=== PATIENT | male | born 1960 | race Caucasian/White ===

== ENCOUNTER 2021-09-18 07:02 | Day surgery (SDC) | payer SELFPAY ==
[2021-09-17 14:25] LABS: Potassium 4.6 mmol/L (3.5-5.1)
[2021-09-18] MEDS ORDERED: CEFAZOLIN SODIUM 1 GM/VIAL ONE (07:14)
[2021-09-18] MEDS ORDERED: Ringers Lactate 1,000 ML IV ONE (07:14)
[2021-09-18] MEDS ORDERED: NA CHLORIDE 0.9% 50 ML ONE (07:14)
[2021-09-18] MEDS ORDERED: CEFAZOLIN 1 GM in NA CHLORIDE 0.9% 50 ML IVPB SCH (07:30)
[2021-09-18] MEDS ORDERED: MIDAZOLAM HCL 2 MG/2 ML INJ ONE (08:17)
[2021-09-18] MEDS ORDERED: FENTANYL CITR 100 MCG/2 ML ONE (08:17)
[2021-09-18] MEDS ORDERED: propofoL 200 MG/20 ML VIAL IV ONE (08:17)
[2021-09-18] MEDS ORDERED: ONDANSETRON 4 MG/2 ML VIAL ONE (08:18)
[2021-09-18] MEDS ORDERED: LIDOCAINE 1% MPF 5 ML VIAL ONE (08:22)
[2021-09-18] MEDS ORDERED: EPHEDRINE SULF 50 MG/ML VIAL ONE (08:40)
[2021-09-18] MEDS: BUPIVACAINE 0.25% PF 10 ML VIAL ONE ×2 (08:40→08:45)
[2021-09-18] MEDS ORDERED: GLYCOPYRROLATE 0.2 MG/ML SYR ONE (08:49)
[2021-09-18] MEDS: SODIUM HYPOCHLORITE 0.25% 473 ML ONE ×2 (08:57→09:16)
--- NOTE | 2021-09-18 09:02 | P.OP ---
Preoperative diagnosis: RIGHT Axillary Abscess Postoperative diagnosis: RIGHT Axillary Abscess Primary procedure: Incision and Drainage of RIGHT Axillary Abscess Anesthesia: GETA + Local Estimated blood loss: < 10cc Specimen: Infected Sebaceous Cyst, Cultures Findings: Infected Sebaceous Cyst into adipose, ~5cm round Complications: None Transferred to: Recovery Room Condition: Good
[2021-09-18] MEDS ORDERED: dexAMETHasone 10 MG/ML VIAL ONE (09:04)
[2021-09-18 09:56] VITALS: BP 116/64; TEMP 97.1
--- NOTE | 2021-09-18 10:44 | OP ---
Date of Procedure: 09/18/2021 Surgeon: Jacob Steen MD, Preoperative Diagnosis: Right axillary abscess. Postoperative Diagnosis: Right axillary abscess. Procedure Performed: Incision and drainage of right axillary abscess with debridement. Anesthesia: General endotracheal plus local with 0.25% Marcaine. Estimated Blood Loss: Less than 10 mL. Specimen: Infected sebaceous cyst. Cultures were sent for aerobic and anaerobic speciation. Findings: Infected sebaceous cyst and adipose tissue approximately 5 cm around. Complications: None. Disposition: The patient was transferred to the recovery room in good condition. Procedure In Detail: After informed consent was obtained, the patient was brought to the operating r oom, prepped and draped in the usual sterile fashion after adequate anesthesia was achieved. A curvi linear incision was made through an elliptical area of skin in the right axillary tissue down through the subcutaneous tissues. Immediately encountered was an infected sebaceous cyst with waxy material . This was cultured both aerobic and anaerobic speciation. I then took the skin ellipse out using a combination of sharp and electrocautery dissection. After this, cavity was opened in its entirety. I removed all sebaceous cyst as well as the sac containing. The area was copiously irrigated multip le times and then hemostasis was achieved with electrocautery. I then used a curette to debride the cut surfaces and good bleeding tissue and using electrocautery once again irrigated the area once aga in until hemostasis was achieved. The specimen was sent off for pathologic examination. The wound w as then packed with 0.25% Dakin solution. Sterile dressing placed on top. The patient tolerated the procedure well without evidence of complication and transferred to PACU in good condition. All coun ts were correct at the end of the case. BOGDAN/KARIN Voice ID: [id number] Report ID: [id number]
[2021-09-18 10:54] VITALS: O2SAT 100
== END 2021-09-18 10:37 | disposition home or self-care (01) ==
LOC: OR 07:02
PROVIDERS: ATTEND Surgery
PROC: 0J9D0ZZ Drainage of Right Upper Arm Subcutaneous Tissue and Fascia, Open Approach (ICD-10-PCS; principal; 2021-09-18 08:15)
DX: L02.411 Cutaneous abscess of right axilla (principal); Z20.822 Contact with and (suspected) exposure to COVID-19
CPT/HCPCS: 36415; 80048; 87070; 87075; 87205; 88304; J0690; J1100; J2250; J2405; J2704; J3010; J7120; U0003